=== PATIENT | male | born 1960 | race Hispanic/Latino ===

== ENCOUNTER 2019-12-22 11:46 | Emergency (ER) | payer OTHER, SELFPAY ==
--- NOTE | 2019-12-22 12:11 | ED.EYEPROB ---
HPI - Eye Problem General Chief complaint: Eye Problems Stated complaint: Eye infection Time Seen by Provider: 12/22/19 12:11 Source: patient Mode of arrival: ambulatory Limitations: no limitations History of Present Illness HPI Narrative: 59-year-old man comes in today complaining of bilateral eye redness and irritation that started about 1 week ago. Patient states that his left eye hurts worse and it feels like they are rocks in them. He states he works in an environment where there is lot of debris flying in the air. Patient states that he has had some nausea, headache and fatigue for the last week. He has a history of diabetes. MD chief complaint: eye pain and eye redness Onset (ago): week(s) (1) Duration: constant Location: both eyes Mechanism: none Severity: moderate Associated symptoms: headache and nausea/vomiting Related Data Home Medications Medication Instructions Recorded Confirmed allopurinol 200 mg PO DAILY 02/12/19 02/12/19 cyclobenzaprine 10 mg PO BID PRN 02/12/19 02/12/19 diclofenac sodium 75 mg PO DAILY 02/12/19 02/12/19 doxazosin 1 mg PO DAILY 02/12/19 02/12/19 fluoxetine 20 mg PO DAILY 02/12/19 02/12/19 gabapentin 800 mg PO TID 02/12/19 02/12/19 glyburide 2.5 mg PO DAILY 02/12/19 02/12/19 lisinopril-hydrochlorothiazide 1 tablet PO DAILY 02/12/19 02/12/19 metoprolol succinate 50 mg PO DAILY 02/12/19 02/12/19 pravastatin 40 mg PO DAILY 02/12/19 02/12/19 prednisone 5 mg PO BID 02/12/19 02/12/19 tamsulosin 0.4 mg PO DAILY 02/12/19 02/12/19 Allergies Allergy/AdvReac Type Severity Reaction Status Date / Time No Known Allergies Allergy Unknown Verified 12/22/19 12:42 Review of Systems Constitutional: Constitutional: Reports chills and Denies fever(s) Eyes: Eyes: Denies change in vision and Denies photophobia ENT: Denies dysphagia, Denies nasal congestion and Denies sore throat Cardiovascular: Cardiovascular: Denies chest pain and Denies radiating jaw, neck or arm pain Respiratory: Respiratory: Denies cough, Denies dyspnea and Denies wheezing Gastrointestinal: Gastrointestinal: Denies abdominal pain, Denies diarrhea, Reports nausea and Denies vomiting Genitourinary: Genitourinary: Denies dysuria and Denies urinary frequency Musculoskeletal: Musculoskeletal: Denies arthralgias and Denies joint swelling Integumentary/Breasts: Skin/Breast: Denies pruritus, Denies erythema and Denies rash Neurologic: Denies vertigo, Denies dizziness, Denies syncope and Denies focal weakness Hematologic/Lymphatic: Hematologic/Lymphatic: Denies easy bleeding and Denies easy bruising Allergic/Immunologic: Allergic/Immunologic: Denies lip swelling and Denies tongue swelling PMFSH Past Medical History Medical History (Updated 12/22/19 @ 12:58 by Jamal Brown MD) Diabetes mellitus HTN (hypertension) Social History Social History (Updated 12/22/19 @ 12:34 by Jamal Brown MD) Smoking status: Never smoker Substance use type: does not use Living arrangements: with family Exam Const: General: healthy appearing, no acute distress and alert Orientation/consciousness: patient oriented x3 HENMT: Ears: external ears normal, TM's normal bilaterally and EAC's normal General nose exam: Normal nares present Face and sinus: normal facial exam Mouth: Yes moist mucous membranes Throat: posterior oropharynx normal Eyes: Pupils: Equal, round and reactive pupils present EOM: EOMs intact bilaterally Other: conjunctival injection bilaterally left being much worse than the right. There are no obvious foreign bodies. There is no crusting or discharge. Corneas are clear. Upper lower fossa were swept with a moistened swabs and no foreign bodies were found. Corneas showed no fluorescein uptake. There is small punctate submilimeter brown/black lesion at the 12:00 p.m. conjunctiva of the right eye. Sweeping the foreign body resulted in no movement or extraction. Resp: Effort & Inspection: normal re
[2019-12-22 12:24] VITALS: BP 132/75; PULSE 84; RESP 18; TEMP 36.3; O2SAT 97
[2019-12-22] MEDS: DACRIOSE EYE IRRIGATION 118 ML BOTTLE 10 ML EACH EYE (12:40)
[2019-12-22] MEDS: FLUORESCEIN SOD 1 MG/STRIP EACH EYE (12:40)
[2019-12-22] MEDS: TETRACAINE HCL 0.5% OPHTH SOLN 4 ML BTL 1 DROP EACH EYE (12:40)
[2019-12-22 13:57] VITALS: BP 125/76; PULSE 72; RESP 16; TEMP 36.6; O2SAT 98
--- NOTE | 2019-12-22 13:59 | PC.NURSE ---
Pt states that he would like his pharmacy changed from [facility] to [facility].
== END 2019-12-22 13:58 | disposition home or self-care (01) ==
PROVIDERS: Emergency Provider Emergency Medicine; PCP Registered Nurse
DX: H10.9 Unspecified conjunctivitis (principal)
CPT/HCPCS: 99283; A9270

== ENCOUNTER 2020-02-26 07:35 | Emergency (ER) | payer OTHER, SELFPAY ==
--- NOTE | ~2020-02-26 | CT_ITS ---
EXAMINATION: CT chest abdomen wo con DATE: 02/26/2020 08:43 INDICATION: Right lower chest pain, right flank pain. Cough. Mass in right posterior lower chest. TECHNIQUE: Computed tomography (CT) of the chest and abdomen was performed without intravenous contra st. Automated exposure control and iterative reconstruction technique were employed. Exam dose: 1141 .50 mGy-cm total exam DLP. COMPARISON: 09/23/2016 CT chest high resolution scan /09/2016 CT abdomen pelvis FINDINGS: CHEST CT: There is a lipoma subjacent to the right latissimus dorsi muscle, which likely accounts for the compl aint of right posterolateral lower thoracic bump. Normal heart size. No pericardial or pleural effusion. No thoracic aortic aneurysm. No hilar or mediastinal mass lesion or lymphadenopathy. There is mild discoid atelectasis or more likely scarring in the left lower lobe. There is chronic mi ld thickening of the interlobular septa in the peripheral right upper and lower lobes primarily. No p ulmonary consolidation or pulmonary mass lesion is evident. ABDOMEN CT: The liver, gallbladder, spleen, pancreas, and adrenal glands are unremarkable. There are bilateral parapelvic renal cysts. No renal calculus or hydroureteronephrosis. There is minimal abdominal aortic atherosclerotic calcification but no aneurysm. No intraperitoneal or retroperitoneal mass lesion or adenopathy or ascites. No bowel obstruction, bow el wall thickening, pneumatosis or intraperitoneal free air. The appendix is not included within the scope of this examination. There is a fat-containing umbilical hernia. Diffuse idiopathic skeletal hyperostosis of the thoracic spine. No suspicious osteolytic or osteoblas tic lesions are noted. 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 Reviewed, dictated and finalized at [facility]. [employer] IMPRESSION: Right posterolateral lower chest wall lipoma beneath the latissimu s dorsi Chronic discoid scarring, left lower lobe, peripheral chronic interlobular sept al thickening, right upper and lower lobes
[2020-02-26] MEDS: KETOROLAC (*BKC) 60 MG/2 ML VIAL IM (08:04)
[2020-02-26] MEDS: DEXAMETHASONE SOD PHOS INJ 4 MG/ML VIAL 10 MG BY MOUTH (08:04)
[2020-02-26 08:15] VITALS: BP 141/92; PULSE 81; RESP 16; TEMP 36.1; O2SAT 96
--- NOTE | 2020-02-26 08:41 | ED.BACK ---
HPI - Back Pain/Injury General Chief Complaint: Back Pain/Injury Stated Complaint: back pain Time Seen by Provider: 02/26/20 08:20 Source: patient Mode of arrival: ambulatory Limitations: no limitations History of Present Illness HPI Narrative: Patient states he has a area on his back that is causing him pain. He was having a massage and the lady doing it noticed the area. Since then he says he has had dull pain, moderately severe and ongoing, radiating down his back. NSAIDs at home have not helped much. He comes in worried he has a tumor. This discomfort has been going on for days. This area of discomfort is over posterior right lower ribs, and radiates to lower back. Timing: constant Severity: moderate Location: lumbar spine and thoracic spine Exacerbating factors: other (pressing on the area) Relieving factors: none Associated symptoms: denies other symptoms Related Data Home Medications Medication Instructions Recorded Confirmed allopurinol 200 mg PO DAILY 02/12/19 02/26/20 cyclobenzaprine 10 mg PO BID PRN 02/12/19 02/26/20 doxazosin 1 mg PO DAILY 02/12/19 02/26/20 fluoxetine 20 mg PO DAILY 02/12/19 02/26/20 gabapentin 800 mg PO TID 02/12/19 02/26/20 glyburide 2.5 mg PO DAILY 02/12/19 02/26/20 lisinopril-hydrochlorothiazide 1 tablet PO DAILY 02/12/19 02/26/20 metoprolol succinate 50 mg PO DAILY 02/12/19 02/26/20 pravastatin 40 mg PO DAILY 02/12/19 02/26/20 tamsulosin 0.4 mg PO DAILY 02/12/19 02/26/20 Allergies Allergy/AdvReac Type Severity Reaction Status Date / Time No Known Allergies Allergy Unknown Verified 12/22/19 12:42 Review of Systems Constitutional: Constitutional: Reports no additional constitutional complaints Eyes: Eyes: Reports no additional eye complaints ENT: Reports system reviewed and no additional complaints, except as documented Cardiovascular: Cardiovascular: Reports no additional cardiovascular complaints Respiratory: Respiratory: Reports no additional respiratory complaints Gastrointestinal: Gastrointestinal: Reports no additional gastrointestinal complaints Genitourinary: Genitourinary: Reports no additional male genitourinary complaints Musculoskeletal: Musculoskeletal: Reports no additional musculoskeletal complaints Integumentary/Breasts: Skin/Breast: Reports system reviewed and no additional complaints, except as docu Neurologic: Reports system reviewed and no additional complaints, except as documented Psychiatric: Psychiatric: Reports no additional psychiatric complaints Endocrine: Endocrine: Reports no additional endocrine complaints Hematologic/Lymphatic: Hematologic/Lymphatic: Reports no additional hematologic/lymphatic complaints Allergic/Immunologic: Allergic/Immunologic: Reports no additional allergic/immunologic complaints [facility] Past Medical History Medical History (Updated 02/26/20 @ 09:40 by Fernando Barr MD) Diabetes mellitus HTN (hypertension) Hyperlipidemia Osteoarthritis Family History Family History (Updated 02/26/20 @ 08:51 by Fernando Barr MD) Father Diabetes mellitus Mother Uterine cancer Social History Social History (Updated 02/26/20 @ 08:51 by Fernando Barr MD) Smoking status: Never smoker Alcohol intake: never Substance use type: does not use Exam Const: General: no acute distress HENMT: Head: normal to inspection Ears: external ears normal and TM's normal bilaterally Face and sinus: normal facial exam Mouth: Yes Normal oral and palatal mucosa present Throat: posterior oropharynx normal Eyes: Conjunctivae: conjunctivae normal Neck: Neck: normal visual inspection Chest: Chest palpation & inspection: normal inspection of the chest Resp: Effort & Inspection: normal respiratory effort Other: decreased breath sounds Cardio: Rate: regular rate Rhythm: regular rhythm GI: GI Palp: Yes Soft to palpation Other: nontender Back/Spine/Pelvis: Other: Back on lower right has a soft moveable mass that by feel appe
[2020-02-26 09:53] VITALS: BP 169/102
== END 2020-02-26 09:55 | disposition home or self-care (01) ==
PROVIDERS: Emergency Provider Emergency Medicine; PCP Registered Nurse
DX: D17.9 Benign lipomatous neoplasm, unspecified (principal)
CPT/HCPCS: 71250; 74150; 96372; 99283; 99284; J1100; J1885

== ENCOUNTER 2020-03-01 15:50 | Outpatient (CLI) | payer OTHER, SELFPAY ==
--- NOTE | 2020-03-01 14:00 | ECG_ITS ---
Measurements Intervals [place] Rate: 61 P: 1 MI: 147 QRS: 20 QRSD: 109 T: 35 QT: 391 QTc: 396 Interpretive Statements SINUS RHYTHM INCOMPLETE RIGHT BUNDLE BRANCH BLOCK BASELINE WANDER- V3-V4 BORDERLINE ECG Electronically Signed On 03-01-2020 14:03:51 [employer] by Teddy Jeter D.O.
[2020-03-01 15:21] LABS: Anion Gap 7 mmol/L (8-16); Blood Urea Nitrogen 16 mg/dL (9-20); Calcium 10.6 mg/dL (8.4-10.2); Carbon Dioxide 30 mmol/L (22-30); Chloride 97 mmol/L (98-107); Estimated Glomerular Filt Rate > 60; Glucose 213 mg/dL (75-110); Sodium 134 mmol/L (137-145)
== END 2020-03-01 15:51 | disposition home or self-care (01) ==
LOC: ANHSURGERY 07-11 15:51
PROVIDERS: PCP Registered Nurse; Visit Provider Surgery
DX: Z01.818 Encounter for other preprocedural examination (principal); E11.9 Type 2 diabetes mellitus without complications
CPT/HCPCS: 36415; 80048; 93005

== ENCOUNTER 2020-03-02 02:30 | Outpatient (CLI) | payer OTHER, SELFPAY ==
[2020-03-02 19:32] LABS: SARS-CoV-2 RNA PCR Negative
== END 2020-03-02 02:31 | disposition home or self-care (01) ==
LOC: ANHCOVIDDT 02:31
PROVIDERS: PCP Registered Nurse; Visit Provider Surgery
DX: Z01.812 Encounter for preprocedural laboratory examination (principal); Z20.822 Contact with and (suspected) exposure to COVID-19
CPT/HCPCS: C9803; U0003

== ENCOUNTER 2020-03-06 02:21 | Day surgery (SDC) | payer OTHER, SELFPAY ==
[2020-02-29 16:43] VITALS: BMI 33.5
[2020-03-06] VITALS (8 sets, daily range): BP systolic 115–120; BP diastolic 60–84; PULSE 58–77; RESP 14–16; TEMP 36–36.1; O2SAT 94–100
[2020-03-06] MEDS: LACTATED RINGERS 1,000 ML 30 ML IV CONT (09:45)
[2020-03-06 09:53] LABS: Glucose Point of Care 218 (65-105)
--- NOTE | 2020-03-06 10:40 | WPDANESEPPF ---
Anes - Initial Pre Proc Eval Procedure: Operation Date: 03/06/20 11:00 Proposed Procedures p Excision Of Right Back Mass - Seema Dey MD Date/Time: 03/06/20 10:40 Surgeon: Seema Dey MD Pre Op Diagnosis: Right Back Mass Patient Data Age: 59 Gender: M Height: 5 ft 8 in Weight: 99.6 kg Last Vital Signs Temp 97.0 F L 03/06/20 10:05 Pulse 77 03/06/20 10:05 Resp 16 03/06/20 10:05 BP 120/83 03/06/20 10:05 Pulse Ox 97 03/06/20 10:05 Allergies Allergy/AdvReac Type Severity Reaction Status Date / Time No Known Allergies Allergy Unknown Verified 03/06/20 08:53 Home Medications Medication Instructions Recorded Confirmed Type allopurinol 200 mg PO DAILY 02/12/19 03/06/20 History cyclobenzaprine 10 mg PO BID PRN 02/12/19 03/06/20 History doxazosin 1 mg PO DAILY 02/12/19 03/06/20 History fluoxetine 20 mg PO DAILY 02/12/19 03/06/20 History gabapentin 800 mg PO TID 02/12/19 03/06/20 History glyburide 2.5 mg PO DAILY 02/12/19 03/06/20 History lisinopril-hydrochlorothiazide 1 tablet PO DAILY 02/12/19 03/06/20 History metoprolol succinate 50 mg PO DAILY 02/12/19 03/06/20 History pravastatin 40 mg PO DAILY 02/12/19 03/06/20 History tamsulosin 0.4 mg PO DAILY 02/12/19 03/06/20 History ketorolac 10 mg PO QID PRN 5 Days #20 tablet 02/26/20 03/06/20 Rx Laboratory Tests 03/06/20 09:50 POC Capillary Glucose 218 mg/dl H mg/dl (65-105) Patient hx anesthesia problems: none Family hx anesthesia problems: none PMFSH Past Medical History Medical History (Updated 02/28/20 @ 10:28 by Jordyn Taylor) Diabetes mellitus History of kidney stones HTN (hypertension) Hyperlipidemia Osteoarthritis Surgical History Surgical History No pertinent past surgical history Family History Family History Father Diabetes mellitus Mother Uterine cancer Social History Social History Smoking status: Never smoker Alcohol intake: never Substance use type: does not use Additional occupation/education comments: [employer] Spiritual care concerns: No Anes - Eval Final PreProcedure Day of Procedure 03/06/20 10:40 Patient weight: obese Heart: regular rate and rhythm Lungs: clear to auscultation Airway: Mallampati scale class II Neurological: alert and oriented Last oral intake: >/= 8 hours ASA classification: III Anesthetic plan: proceed Anesthesia type and monitoring: general LMA (may use ETT if prone positioning) and standard monitoring Informed Consent: The patient's anesthetic plan and its attendant risks and benefits were discussed with the patient/family/POA. Questions were solicited and answers provided to the satisfaction of the patient/family/POA.
--- NOTE | 2020-03-06 10:52 | WPDHPUPDATE1 ---
History and Physical Update Update Date/Time: 03/06/20 10:52 History and Physical has been reviewed, including an updated exam of the patient. There are NO changes in the patient's condition. Risks, benefits, and alternatives have been discussed and questions answered. Patient agrees to proceed with procedure.
[2020-03-06] MEDS: ceFAZolin 2 GM/D5W 50 ML 2 GM/50 ML BAG IVPB (10:59)
[2020-03-06] MEDS: LIDOCAINE HCL 1% LOCAL INJ 10 ML VIAL 30 ML INFILTRATE (11:27)
--- NOTE | 2020-03-06 11:52 | SUR.OPER ---
pre op noted left middle finger deformity. Patient stated from arthritis.
--- NOTE | 2020-03-06 11:57 | P.OP_ITS ---
Procedure Note - Detailed Date of procedure: 03/06/20 Pre-op diagnosis: Right Back Mass Right posterior lateral inferior chest wall mass Post-op diagnosis: other (Right posterior lateral lower chest wall mass subjacent to latissimus muscle and subcutaneous mass) Procedure performed: excisional biopsy right lateral chest wall mass in subcutaneous tissue and subadjacent to latissimus muscle Description of procedure: The patient was taken to the operating room placed in the lateral position. After adequate induction of laryngeal mask anesthesia, the patient was prepped and draped in the normal sterile fashion. Time-out was then done to verify the patient's identity, as well as the procedure being performed. I began by localizing the area in and around this mass that was located in the lower right chest wall in the posterior lateral position. I then made an incision over this mass and carried this down to the subcutaneous tissue. There was noted to be a lipoma in the subcutaneous tissue and this was removed. The larger mass was noted to be sub muscular. I split the latissimus in the direction of its fibers. Upon getting into the cavity, a well- circumscribed lipoma was noted. I was able to remove this in full. It was sent to pathology for further review. I then copiously irrigated the area and no other pathology was noted. Hemostasis was verified. I then closed the subcutaneous tissue with 3 0 Vicryl suture. The skin was closed with 4 O Monocryl subcuticular suture. Dermabond was then placed on the wound. The patient tolerated the procedure well and will be transferred to the recovery room in stable condition. Surgeon: Seema Dey MD Estimated blood loss (mL): 10 Drains: No Packing: No Pathology: yes Complications: No immediate complications Condition: stable Disposition: PACU Findings: subq mass and submuscular mass
[2020-03-06] MEDS: fentaNYL CITRATE INJ (*CRX) 100 MCG/2 ML VIAL 25 MCG IV PUSH ×3 (12:15→12:22)
[2020-03-06 12:18] LABS: Glucose Point of Care 187 (65-105)
[2020-03-06] MEDS: oxyCODONE HCL (*CRX) 5 MG TAB IR PO (13:09)
== END 2020-03-06 13:48 | disposition home or self-care (01) ==
PROVIDERS: PCP Registered Nurse; Visit Provider Surgery
PROC: (CPT 21554; principal; 2020-03-06 11:00)
DX: D17.1 Benign lipomatous neoplasm of skin and subcutaneous tissue of trunk (principal); I10 Essential (primary) hypertension; E78.5 Hyperlipidemia, unspecified; E11.9 Type 2 diabetes mellitus without complications; M19.90 Unspecified osteoarthritis, unspecified site; E66.9 Obesity, unspecified; Z68.33 Body mass index [BMI] 33.0-33.9, adult
CPT/HCPCS: 21554; 88304; A9270; J0690; J1100; J2250; J2405; J2704; J3010; J7120

== ENCOUNTER 2021-12-04 11:08 | Outpatient (CLI) | payer MEDICAID, SELFPAY ==
[2021-12-04 11:34] LABS: Basophils Absolute Auto 0.08 K/mm3 (0.00-0.10); Basophils Percent Auto 0.7 % (0.0-1.0); Eosinophils Absolute Auto 0.33 K/mm3 (0.02-0.50); Hematocrit 44.8 % (40.0-54.0); Hemoglobin 14.9 g/dL (14.0-18.0); Immature Granulocyte Absolute 0.08 K/mm3 (0.00-0.00); Immature Granulocyte Percent A 0.7 % (0.0-0.0); Immature Platelet Fraction Pct 1.4 % (1.0-7.0); Lymphocytes Absolute Auto 3.76 K/mm3 (1.10-4.50); Lymphocytes Percent Auto 34.8 % (18.0-42.0); Mean Corpuscular HGB Conc 33.3 g/dL (32.0-36.0); Mean Corpuscular Hemoglobin 32.9 pg (27.0-31.0); Mean Corpuscular Volume 98.9 fL (78.0-102.0); Mean Platelet Volume 9.2 fl (8.7-11.0); Monocytes Absolute Auto 1.18 K/mm3 (0.10-0.90); Monocytes Percent Auto 10.9 % (2.0-11.0); Neutrophils Absolute Auto 5.4 K/mm3 (1.7-7.2); Neutrophils Percent Auto 49.9 % (50.0-70.0); Platelet Count Result 555 K/mm3 (150-420); Red Blood Count 4.53 M/mm3 (4.70-6.10); Red Cell Distribution Width 15.9 % (11.6-14.4); White Blood Count 10.8 K/mm3 (4.8-10.8)
[2021-12-04 12:12] LABS: Alanine Aminotransferase 46 U/L (16-63); Albumin Level 3.5 g/dL (3.4-5.0); Alkaline Phosphatase 124 U/L (46-116); Anion Gap 5 mmol/L (8-16); Aspartate Amino Transferase 14 U/L (15-37); Bilirubin,Total 0.3 mg/dL (0.00-1.00); Blood Urea Nitrogen 17 mg/dL (7-18); Calcium 9.9 mg/dL (8.5-10.1); Carbon Dioxide 30 mmol/L (21-32); Chloride 105 mmol/L (98-108); Estimated Glomerular Filt Rate > 60; Glucose 83 mg/dL (70-99); Osmolality Calculated 290 mOsm/kg (285-295); Potassium 4.7 mmol/L (3.5-5.1); Sodium 140 mmol/L (136-145); Total Protein 6.5 g/dL (6.4-8.2)
== END 2021-12-04 11:09 | disposition home or self-care (01) ==
LOC: CHSLAB 11:21
PROVIDERS: PCP Registered Nurse
DX: Z79.899 Other long term (current) drug therapy (principal)
CPT/HCPCS: 36415; 80053; 85025; 85055

== ENCOUNTER 2022-12-29 09:27 | Outpatient (CLI) | payer MEDICAID, SELFPAY ==
--- NOTE | 2022-12-29 09:31 | EST_ITS ---
Patient Info Name: Cristobal Ortega Age: 62 years : 1960 Gender: Male Exam Date: 12/29/2022 9:43 AM Exam Location: [facility] Patient Status: Outpatient Admit Date: 12/29/2022 Staff Ordering Physician: Teddy Jeter DO Attending Provider: Teddy Jeter DO Exercise Technologist: Nay Dumont CT Exercise Physician: Teddy Jeter DO Exam Type: CA stress test treadmill Study Info Indications R07.9 - Chest pain, unspecified A treadmill exercise stress test was performed. Summary 1. 1. Negative Kingsley exercise stress test for ischemic ST changes by ECG criteria. 2. 2. Reduced functional capacity, achieving 8 METs of workload. 3. 3. Appropriate HR response to exercise. 4. 4. Appropriate HR recovery at 1 minute post exercise. 5. 5. No imaging with stress testing. 6. 6. Patient informed of the above results. Protocol: [place]ley Stress ECG Details Stage: REST Duration (min): 1 min : 9 sec Speed (mph): 0.0 Grade (%): 0 HR (bpm): 63 SBP (mmHg): 116 DBP (mmHg): 64 METS: --- Stage: REST Duration (min): 5 min : 51 sec Speed (mph): 0.0 Grade (%): 0 HR (bpm): 63 SBP (mmHg): 116 DBP (mmHg): 64 METS: --- Stage: STAGE 1 Duration (min): 1 min : 0 sec Speed (mph): 1.7 Grade (%): 10 HR (bpm): 90 SBP (mmHg): 116 DBP (mmHg): 64 METS: --- Stage: STAGE 1 Duration (min): 2 min : 0 sec Speed (mph): 1.7 Grade (%): 10 HR (bpm): 93 SBP (mmHg): 116 DBP (mmHg): 64 METS: --- Stage: STAGE 1 Duration (min): 3 min : 0 sec Speed (mph): 1.7 Grade (%): 10 HR (bpm): 94 SBP (mmHg): 160 DBP (mmHg): 85 METS: --- Stage: STAGE 2 Duration (min): 1 min : 0 sec Speed (mph): 2.5 Grade (%): 12 HR (bpm): 108 SBP (mmHg): 160 DBP (mmHg): 85 METS: --- Stage: STAGE 2 Duration (min): 2 min : 0 sec Speed (mph): 2.5 Grade (%): 12 HR (bpm): 115 SBP (mmHg): 186 DBP (mmHg): 89 METS: --- Stage: STAGE 2 Duration (min): 3 min : 0 sec Speed (mph): 2.5 Grade (%): 12 HR (bpm): 116 SBP (mmHg): 186 DBP (mmHg): 89 METS: --- Stage: STAGE 3 Duration (min): 0 min : 53 sec Speed (mph): 3.4 Grade (%): 14 HR (bpm): 136 SBP (mmHg): 186 DBP (mmHg): 89 METS: --- Stage: RECOVERY Duration (min): 0 min : 6 sec Speed (mph): 1.5 Grade (%): 0 HR (bpm): 138 SBP (mmHg): 202 DBP (mmHg): 86 METS: --- Stage: RECOVERY Duration (min): 1 min : 6 sec Speed (mph): 0.0 Grade (%): 0 HR (bpm): 99 SBP (mmHg): 202 DBP (mmHg): 86 METS: --- Stage: RECOVERY Duration (min): 2 min : 6 sec Speed (mph): 0.0 Grade (%): 0 HR (bpm): 88 SBP (mmHg): 202 DBP (mmHg): 86 METS: --- Stage: RECOVERY Duration (min): 3 min : 6 sec Speed (mph): 0.0 Grade (%): 0 HR (bpm): 84 SBP (mmHg): 158 DBP (mmHg): 49 METS: --- Stage: RECOVERY Duration (min): 3 min : 10 sec Speed (mph): 0.0 Grade (%):
== END 2022-12-29 09:28 | disposition home or self-care (01) ==
LOC: ANHCARD 09:28
PROVIDERS: PCP Registered Nurse; Visit Provider Internal Medicine Cardiovascular Disease
DX: R07.9 Chest pain, unspecified (principal)
CPT/HCPCS: 93017